=== PATIENT | female | born 2000 | race Caucasian/White ===

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

== ENCOUNTER 2019-02-02 20:29 | Emergency (ER) | payer SELFPAY ==
[~2019-02-02] VITALS: Ht 152.4 cm; Wt 63.6 kg
[~2019-02-02 20:29] MED LIST: CLEOCIN HCL300 MG PO; FLORASTOR250 MG PO; KEFLEX500 MG PO; ZOLOFT25 MG
[2019-02-02 20:36] VITALS: BP 124/80; Ht 152.4 cm; Wt 63.6 kg
[2019-02-02] MEDS ORDERED: AMOXICILLIN875 MG PO (20:40)
[2019-02-02 21:33] LABS: APPEARANCE CLEAR (CLEAR); BASOPHILS 0.2 % (0-2); BILIRUBIN NEGATIVE (NEGATIVE); COLOR STRAW (YELLOW); EOSINOPHILS 2.1 % (0-7); GLUCOSE NEGATIVE (NEGATIVE); HEMATOCRIT 38.7 % (36.0-48.0); HEMOGLOBIN 13.3 g/dL (12-16); IMMATURE GRANULOCYTES 0.2 % (0-5); KETONE NEGATIVE (NEGATIVE); LYMPHOCYTES 40.3 % (15-50); MCH 30.2 pg (26.0-34.0); MCHC 34.4 g/dL (31.0-37.0); MEAN PLATELET VOLUME 11.5 fL (7.4-10.4); MONOCYTES 7.2 % (2-11); NITRITE NEGATIVE (NEGATIVE); PLATELET COUNT 227 10x3/uL (130-400); PROTEIN NEGATIVE (NEGATIVE); RDW 12.7 % (11.5-14.5); SPECIFIC GRAVITY 1.015 (1.005-1.020); UROBILINOGEN NORMAL (NORMAL); WBC 10.3 10x3/uL (4.8-10.8)
[2019-02-02 21:46] LABS: ALBUMIN 3.6 g/dL (3.4-5.0); ALKALINE PHOSPHATASE 105 U/L (46-116); ALT (SGPT) 36 U/L (10-68); BILIRUBIN - TOTAL 0.15 mg/dL (0.2-1.3); CALC OSMOLALITY 282 mosm/kg (275-300); CALCIUM 9.2 mg/dL (8.5-10.1); CHLORIDE - SERUM 105 mmol/L (98-107); CREATININE - SERUM 0.8 mg/dL (0.6-1.3); GLUCOSE 85 mg/dL (74-106); POTASSIUM - SERUM 3.8 mmol/L (3.5-5.1); PROTEIN - SERUM 7.7 g/dL (6.4-8.2); SODIUM 142 mmol/L (136-145); UREA NITROGEN 16 mg/dL (7-18); eGFR NON AFRICAN AMERICAN > 90 mL/min (90-120)
[2019-02-02] MEDS ORDERED: FLAGYL500 MG PO (22:00)
[2019-02-02] MEDS ORDERED: CLEOCIN HCL150 MG PO (22:00)
== END 2019-02-02 22:06 | disposition home or self-care (01) ==
LOC: D.ER 20:29
PROVIDERS: Emergency Medicine
DX: T19.2XXA Foreign body in vulva and vagina, initial encounter (principal); X58.XXXA Exposure to other specified factors, initial encounter; Y93.89 Activity, other specified; Y92.019 Unspecified place in single-family (private) house as the place of occurrence of the external cause

== ENCOUNTER 2019-02-26 21:24 | Emergency (ER) | payer SELFPAY ==
[~2019-02-26] VITALS: Ht 152.4 cm; Wt 63.7 kg
[~2019-02-26 21:24] MED LIST changes: +AMOXICILLIN875 MG PO; +CLEOCIN HCL150 MG PO; +FLAGYL500 MG PO
[2019-02-26 21:34] VITALS: BP 125/83; Ht 152.4 cm; Wt 63.7 kg
[2019-02-26] MEDS ORDERED: ZOLOFT100 MG PO (21:35)
== END 2019-02-26 22:29 | disposition left against medical advice (07) ==
LOC: D.ER 21:24
DX: R07.9 Chest pain, unspecified (principal)

== ENCOUNTER 2021-01-28 18:23 | Emergency (ER) | payer MEDICAID ==
[~2021-01-28] VITALS: Ht 152.4 cm; Wt 78.9 kg
[~2021-01-28 18:23] MED LIST changes: +ZOLOFT100 MG PO
[2021-01-28 18:35] VITALS: Ht 152.4 cm; Wt 78.9 kg
[2021-01-28 19:17] LABS: BASOPHILS 0 % (0-2); EOSINOPHILS 0.8 % (0-7); HEMATOCRIT 42.4 % (36.0-48.0); HEMOGLOBIN 14.3 g/dL (12-16); LYMPHOCYTES 6.3 % (15-50); MCH 29.3 pg (26.0-34.0); MCHC 33.6 g/dL (31.0-37.0); MEAN PLATELET VOLUME 9.7 fL (7.4-10.4); MONOCYTES 4.6 % (2-11); NEUTROPHILS 88.3 % (40-80); PLATELET COUNT 241 10x3/uL (130-400); RBC 4.87 10x6/uL (4.00-5.40); RDW 13.3 % (11.5-14.5); WBC 13.5 10x3/uL (4.8-10.8)
[2021-01-28 19:21] LABS: CALC OSMOLALITY 281 mosm/kg (275-300); CALCIUM 8.3 mg/dL (8.5-10.1); CARBON DIOXIDE 30.7 mmol/L (21.0-32.0); CHLORIDE - SERUM 101 mmol/L (98-107); CREATININE - SERUM 0.9 mg/dL (0.6-1.3); POTASSIUM - SERUM 3.7 mmol/L (3.5-5.1); SODIUM 140 mmol/L (136-145); UREA NITROGEN 14 mg/dL (7-18); eGFR NON AFRICAN AMERICAN 84 mL/min (90-120)
[2021-01-28 19:25] LABS: GLUCOSE 131 mg/dL (74-106)
[2021-01-28 19:30] LABS: ALBUMIN 3.6 g/dL (3.4-5.0); ALKALINE PHOSPHATASE 92 U/L (30-120); ALT (SGPT) 31 U/L (10-68); AMYLASE - SERUM 38 U/L (25-115); BILIRUBIN - TOTAL 0.57 mg/dL (0.2-1.3); LIPASE 60 U/L (73-393); PROTEIN - SERUM 7.5 g/dL (6.4-8.2)
[2021-01-28 19:34] LABS: TROPONIN-I < 0.017 ng/mL (0.000-0.060)
[2021-01-28 19:59] LABS: BILIRUBIN NEGATIVE (NEGATIVE); KETONE NEGATIVE (NEGATIVE); NITRITE NEGATIVE (NEGATIVE); UROBILINOGEN NORMAL mg/dL (< 2)
[2021-01-28 20:00] LABS: HCG URINE NEGATIVE (NEGATIVE)
[2021-01-28] MEDS ORDERED: ZOFRAN ODT4 MG/UDTAB PO (21:40)
[2021-01-28 21:45] VITALS: BP 97/58
== END 2021-01-28 21:45 | disposition home or self-care (01) ==
LOC: D.ER 18:23
PROVIDERS: Family Medicine
DX: K52.9 Noninfective gastroenteritis and colitis, unspecified (principal)